=== PATIENT | female | born 1985 | race Caucasian/White ===

== ENCOUNTER 2024-04-26 17:29 | Emergency (ER) | payer OTHER ==
[~2024-04-26] VITALS: Ht 167.6 cm; Wt 63.5 kg
[2024-04-26 17:47] VITALS: TEMP 97.9
[2024-04-26] MEDS ORDERED: TDAP [DIPH/PERTUSSIS/TET] 0.5 ML VIAL IM ONE (18:07)
[2024-04-26] MEDS: TDAP [DIPH/PERTUSSIS/TET] 0.5 ML VIAL IM ONE (18:11)
[2024-04-26] MEDS ORDERED: LIDOCAINE 1% INJ 50 ML MDV IJ ONE (19:13)
[2024-04-26] MEDS: LIDOCAINE 1% INJ 50 ML MDV IJ ONE (19:27)
[2024-04-26 22:25] VITALS: BP 120/70; O2SAT 98
== END 2024-04-26 22:20 | disposition home or self-care (01) ==
LOC: ER 17:42
DX: S81.022A Laceration with foreign body, left knee, initial encounter (principal); S61.411A Laceration without foreign body of right hand, initial encounter; W01.0XXA Fall on same level from slipping, tripping and stumbling without subsequent striking against object, initial encounter; Y93.89 Activity, other specified; Y92.89 Other specified places as the place of occurrence of the external cause; Y99.8 Other external cause status
CPT/HCPCS: 12002; 12041; 73130; 73564; 90471; 90715; 99285; A6403; J3490